=== PATIENT | male | born 1990 | race Caucasian/White ===

== ENCOUNTER → 2019-01-10 | Outpatient (CLI) | payer BC ==
--- NOTE | 2019-01-10 10:58 | Diagnostic Imaging Report ---
INDICATION: Right fourth finger injury 3 views of right fourth finger show a fracture of the volar plate at the base of middle phalanx of the right fourth finger. It extends to the articular surface which is minimally displaced. IMPRESSION: Minimally displaced volar plate fracture at the base of the middle phalanx of the right fourth finger. Dictated by: Dictated on workstation # [id number]
== END ==
LOC: RAD FS 10:33
PROVIDERS: ATTEND Family Medicine
DX: S62.624A Displaced fracture of middle phalanx of right ring finger, initial encounter for closed fracture (principal)
CPT/HCPCS: 73140

== ENCOUNTER → 2022-08-05 | Outpatient (CLI) | payer OTHER ==
--- NOTE | 2022-08-05 14:15 | Diagnostic Imaging Report ---
INDICATION: Pain, history of fracture COMPARISON: 01/10/2019 TECHNIQUE: 3 radiographs of the right hand dated 08/05/2022 FINDINGS: Obliquely oriented fracture is identified within the mid to distal 4th digit middle phalanx. There is intra-articular extension to the 4th DIP joint. No additional fracture or dislocation. Severe degenerative changes with joint space narrowing and prominent osteophyte formation involving the 4th PIP joint, severely worsened when compared to 2019. This is associated with overlying soft tissue swelling. Additional significant degenerative changes are noted involving the 5th MCP joint with flattening of the 5th metacarpal head, similar to the prior examination. No suspicious radiopaque foreign body. IMPRESSION: Recent-appearing not significantly displaced fracture involving the 4th digit middle phalanx with extension to the 4th DIP joint, as described above. Severe degenerative changes involving the 4th PIP joint, worsened since the prior examination. Additional stable findings, as above. Dictated by: Dictated on workstation # [id number]
== END ==
LOC: RAD FS 13:35
PROVIDERS: ATTEND Nurse Practitioner Family
DX: S62.624A Displaced fracture of middle phalanx of right ring finger, initial encounter for closed fracture (principal); X58.XXXA Exposure to other specified factors, initial encounter
CPT/HCPCS: 73130

== ENCOUNTER → 2022-08-15 | Outpatient (CLI) | payer OTHER ==
--- NOTE | 2022-08-15 18:23 | Diagnostic Imaging Report ---
INDICATION: Injury to right fourth finger. AP, oblique, and lateral views of the right fingers are obtained. FINDINGS: There is advanced degenerative change of the fourth PIP joint. There is an acute fracture involving the fourth middle phalanx extending into the DIP joint. There is no radiopaque foreign body. IMPRESSION: Acute fracture of fourth middle phalanx extending into the DIP joint with oblique orientation. Underlying marked degenerative change of the PIP joint. Dictated by: Dictated on workstation # [id number]
== END ==
LOC: RAD FS 10:28
PROVIDERS: ATTEND Nurse Practitioner
DX: S62.624A Displaced fracture of middle phalanx of right ring finger, initial encounter for closed fracture (principal); X58.XXXA Exposure to other specified factors, initial encounter
CPT/HCPCS: 73140

== ENCOUNTER → 2022-08-30 | Outpatient (CLI) | payer OTHER ==
--- NOTE | 2022-08-30 17:33 | Diagnostic Imaging Report ---
CLINICAL HISTORY: Fracture involving the right 4th finger. Right hand pain. COMPARISON: 08/15/2022. TECHNIQUE: 3 views of the right fingers. FINDINGS: Subacute fracture is again seen involving the distal aspect of the right 4th middle phalanx with extension into the right 4th DIP joint. No new fractures are identified. No interval malalignment. Degenerative changes are again noted at the right 4th PIP joint. IMPRESSION: 1. Subacute fracture involving the distal aspect of the right 4th middle phalanx with extension into the right 4th DIP joint. No interval malalignment. No new fractures. Dictated by: Dictated on workstation # [id number]
== END ==
LOC: RAD FS 09:27
PROVIDERS: ATTEND Nurse Practitioner
DX: S62.624A Displaced fracture of middle phalanx of right ring finger, initial encounter for closed fracture (principal); X58.XXXA Exposure to other specified factors, initial encounter
CPT/HCPCS: 73140

== ENCOUNTER 2022-12-02 20:43 | Emergency (ER) | payer OTHER ==
[~2022-12-02] VITALS: Ht 180 cm; Wt 136.9 kg
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
[2022-12-02 20:51] VITALS: BP 163/100
--- NOTE | 2022-12-02 21:28 | Diagnostic Imaging Report ---
PROCEDURE: CT head and maxillofacial without contrast. TECHNIQUE: Multiple contiguous axial images were obtained through the head and facial bones without the use of intravenous contrast. Auto Exposure Controls were utilized during the CT exam to meet ALARA standards for radiation dose reduction. INDICATION: Trauma, pain. COMPARISON: None available. FINDINGS: No intracranial hemorrhage. No intracranial mass, mass effect, midline shift, herniation, hydrocephalus or extra-axial fluid collection. No CT evidence of an acute ischemic infarction. The orbits are unremarkable. The calvarium and extracalvarial soft tissues are unremarkable. The lamina papyracea are intact. Mild mucosal thickening within the inferior bilateral maxillary sinuses. Otherwise, the paranasal sinuses are clear. No temporomandibular joint dislocation. The zygomatic arches are intact. Focal hyperdensity with associated gas lucency is noted immediately anterior to the midline mandible and mandibular teeth. The visualized muscles of mastication are unremarkable. The salivary glands are unremarkable. The parapharyngeal fat is symmetric and well-maintained. No focal fluid collection. No acute facial fracture. No suspicious radiopaque foreign body. IMPRESSION: No acute intracranial abnormality. No acute facial fracture. Hyperdensity with internal gas lucencies anterior to the midline mandible. This is felt to relate to retained contents behind the inferior lip, potentially chewing tobacco. Recommend direct visualization as soft tissue laceration not excluded though felt unlikely. Dictated by: Dictated on workstation # [id number]
== END 2022-12-02 21:40 | disposition home or self-care (01) ==
LOC: EDUNIT# 20:43 → ER FS 20:46
DX: S06.0X1A Concussion with loss of consciousness of 30 minutes or less, initial encounter (principal); S00.83XA Contusion of other part of head, initial encounter; Z28.310 Unvaccinated for COVID-19; V86.55XA Driver of 3- or 4- wheeled all-terrain vehicle (ATV) injured in nontraffic accident, initial encounter; W22.8XXA Striking against or struck by other objects, initial encounter; Y92.410 Unspecified street and highway as the place of occurrence of the external cause
CPT/HCPCS: 70450; 70486